=== PATIENT | male | born 1995 | race Caucasian/White ===

== ENCOUNTER 2023-11-29 14:10 | Emergency (ER) | payer MEDICAID ==
[~2023-11-29] VITALS: Ht 177.8 cm; Wt 70.0 kg
[2023-11-29 14:26] VITALS: BP 125/80; PULSE 93; RESP 16; TEMP 99.5; O2SAT 100
== END 2023-11-29 15:11 | disposition home or self-care (01) ==
LOC: ER 14:10
DX: J02.9 Acute pharyngitis, unspecified (principal)
CPT/HCPCS: 99281

== ENCOUNTER 2024-11-09 06:35 | Emergency (ER) | payer MEDICAID ==
[~2024-11-09] VITALS: Ht 177.8 cm; Wt 66.7 kg
[2024-11-09 06:42] VITALS: O2SAT 99
[2024-11-09] MEDS: IBUPROFEN 600MG TABLET PO ONE (07:18)
[2024-11-09] MEDS: CEPHALEXIN 250MG CAPSULE PO ONE (07:18)
[2024-11-09] MEDS ORDERED: CEPH500C2 MT (07:30)
[2024-11-09 08:46] VITALS: BP 124/68; PULSE 70; RESP 18; TEMP 36.8; O2SAT 99
== END 2024-11-09 09:10 | disposition home or self-care (01) ==
LOC: ER 06:47
DX: L03.012 Cellulitis of left finger (principal)
CPT/HCPCS: 29130; 73140; 99283